=== PATIENT | male | born 2000 | race Caucasian/White ===

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

== ENCOUNTER 2023-01-10 21:40 | Emergency (ER) | payer OTHER ==
[~2023-01-10] VITALS: Ht 172.7 cm; Wt 70.3 kg
[~2023-01-10 21:40] MED LIST changes: +IBUP-1842 PO; +METH-1681 PO
[2023-01-10 22:25] VITALS: BP 130/81; PULSE 70; RESP 16; TEMP 98.1; O2SAT 100
[2023-01-10] MEDS ORDERED: CEPH-588 PO (23:48)
[2023-01-10] MEDS ORDERED: IBUP-2213 PO (23:49)
[2023-01-11 00:17] VITALS: BP 130/81; PULSE 70; RESP 16; TEMP 98.1; O2SAT 100
--- NOTE | 2023-01-11 00:17 | NUR ---
Patient discharged with v/s stable. Written and verbal after care instructions given and explained. Patient alert, oriented and verbalized understanding of instructions. Ambulatory with steady gait. All questions addressed prior to discharge. ID band removed. Patient advised to follow up with PMD. Rx of KEFLEX, MOTRIN given. Patient educated on indication of medication including possible reaction and side effects. Opportunity to ask questions provided and answered.
== END 2023-01-11 00:17 | disposition home or self-care (01) ==
LOC: MED 21:40
DX: S91.331A Puncture wound without foreign body, right foot, initial encounter (principal); Z79.899 Other long term (current) drug therapy; W45.0XXA Nail entering through skin, initial encounter; Y93.89 Activity, other specified; Y92.89 Other specified places as the place of occurrence of the external cause; Y99.8 Other external cause status
CPT/HCPCS: 73630; 90471; 90715; 99283

== ENCOUNTER 2023-05-06 01:25 | Emergency (ER) | payer OTHER ==
[~2023-05-06] VITALS: Ht 172.7 cm; Wt 73.0 kg
[~2023-05-06 01:25] MED LIST changes: +CEPH-588 PO
[2023-05-06 01:53] VITALS: BP 148/86; PULSE 85; RESP 18; TEMP 97; O2SAT 99
== END 2023-05-06 03:29 | disposition home or self-care (01) ==
LOC: MED 01:25
DX: S61.216A Laceration without foreign body of right little finger without damage to nail, initial encounter (principal); X58.XXXA Exposure to other specified factors, initial encounter; Y93.89 Activity, other specified; Y92.89 Other specified places as the place of occurrence of the external cause; Y99.8 Other external cause status
CPT/HCPCS: 99281